=== PATIENT | male | born 1990 | race Caucasian/White ===

== ENCOUNTER 2016-07-27 12:49 | Emergency (ER) | payer BC ==
[~2016-07-27] VITALS: Ht 165.1 cm; Wt 73.0 kg
[2016-07-27] MEDS ORDERED: HYDROCODONE/APAP 5/325MG 1 EACH TABLET ONE (13:08)
[2016-07-27] MEDS ORDERED: HYDROCODONE/APAP 5/325MG 1 EACH TABLET PO ONE (13:30)
[2016-07-27 13:43] VITALS: BP 123/65
== END 2016-07-27 13:44 | disposition home or self-care (01) ==
LOC: ER 12:51
DX: S93.401A Sprain of unspecified ligament of right ankle, initial encounter (principal); W21.02XA Struck by soccer ball, initial encounter; Y93.66 Activity, soccer; Y92.89 Other specified places as the place of occurrence of the external cause; Y99.9 Unspecified external cause status
CPT/HCPCS: 29515; 73610; 99284; A4606; Z7610